=== PATIENT | female | born 1940 | race Caucasian/White ===

== ENCOUNTER → 2024-06-14 09:33 | Outpatient (REF) | payer OTHER, SELFPAY ==
[2024-06-14] MEDS: LEXISCAN 0.4 MG IV (11:50)
== END ==
LOC: RCS 09:33
PROVIDERS: ATTENDING PHYSICIAN Internal Medicine Cardiovascular Disease; FAMILY PHYSICIAN Family Medicine
DX: R06.09 Other forms of dyspnea (principal); I48.19 Other persistent atrial fibrillation
CPT/HCPCS: 78452; 93017; A9500; J2785

== ENCOUNTER 2024-07-12 06:15 | Day surgery (SDC) | payer OTHER, SELFPAY ==
[2024-07-12] VITALS (7 sets, daily range): BP systolic 124–157; BP diastolic 61–98; BMI 48.0
[2024-07-12 08:21] LABS: Glucose - Point of Care 106 mg/dl (70-99)
[2024-07-12] MEDS: NORMOSOL-R/PLASMALYTE-A 1000 IV (08:21)
[2024-07-12 10:05] LABS: Glucose - Point of Care 103 mg/dl (70-99)
[2024-07-12] MEDS: TYLENOL 650 MG PO (10:59)
== END 2024-07-12 12:05 | disposition home or self-care (01) ==
LOC: SDS 06:15
PROVIDERS: ATTENDING PHYSICIAN Obstetrics & Gynecology Gynecology
PROC: 0UDB8ZX Extraction of Endometrium, Via Natural or Artificial Opening Endoscopic, Diagnostic (ICD-10-PCS; 2024-07-12)
DX: N95.0 Postmenopausal bleeding (principal); N84.0 Polyp of corpus uteri; Z88.0 Allergy status to penicillin; Z88.2 Allergy status to sulfonamides; Z91.041 Radiographic dye allergy status
CPT/HCPCS: 58558; 88305; 82962; 88341; 88342

== ENCOUNTER 2025-03-03 10:20 | Emergency (ER) | payer OTHER, SELFPAY ==
[2025-03-03] VITALS (14 sets, daily range): BP systolic 113–181; BP diastolic 70–122; BMI 44.4
[2025-03-03 11:53] LABS: % Basophils 0.7 % (0-2); % Eosinophils 3.1 % (0-6); % Immature Granulocytes 0.3 % (0-0.5); % Monocytes 6.4 % (1.7-9.3); % Neutrophils 70.5 % (42.2-75.2); Absolute Basophils 0.1 10^3/uL (0-0.2); Absolute Eosinophils 0.2 10^3/uL (0-0.7); Absolute Lymphocytes 1.4 10^3/uL (1.2-3.4); Absolute Monocytes 0.5 10^3/uL (0.1-0.6); Absolute Neutrophils 5.3 10^3/uL (1.4-6.5); Hematocrit 39.7 % (37.0-47.0); Hemoglobin 13.4 g/dL (12.0-16.0); Mean Corp Hgb Conc. 33.8 g/dL (33.0-37.0); Mean Corpuscular Hgb 31.4 pg (27.0-31.0); Mean Platelet Volume 10.2 fL (7.4-10.4); Nucleated Red Blood Cells % 0 %; Platelet Count 207 10^3/uL (130-400); Red Blood Cell Count 4.27 10^6/uL (4.20-5.40); Red Cell Dist. Width 13.2 % (11.5-14.5); White Blood Cell Count 7.5 10^3/uL (4.8-10.8)
[2025-03-03 12:06] LABS: ALT (SGPT) 29 U/L (0-35); AST (SGOT) 25 U/L (14-36); Albumin 4.3 g/dl (3.5-5.0); Alkaline Phosphatase 144 U/L (38-126); Blood Urea Nitrogen 29 mg/dl (7-17); Calcium 9.7 mg/dl (8.4-10.2); Carbon Dioxide 28 mmol/L (22-30); Chloride 103 mmol/L (98-107); Estimated Creatinine Clearance 26 ml/min; Glucose 111 mg/dl (70-99); Total Bilirubin 0.7 mg/dl (0.2-1.3); Total Protein 7.4 g/dl (6.3-8.2); eGFR 25.72
[2025-03-03 12:50] LABS: Potassium 4.1 mmol/L (3.5-5.1); Sodium 143 mmol/L (135-145)
--- NOTE | 2025-03-03 13:59 | ED.GENMED ---
History of Present Illness
<Steven Rowan PA-C - Last Filed: 03/03/25 18:48>
General
Chief Complaint: Cardiac Symptoms
Time Seen by Provider: 03/03/25 11:50
History of Present Illness
History of Present Illness:
84-year-old female presents the emergency department for evaluation of heart palpitations that began this morning associated with mild chest tightness. She noted this morning that she was in A-fib however felt 'okay' however as the day went on her
rates increased and she began to feel more symptomatic. She denies any fevers, chills, or sweats. No leg swelling or vomiting. Has been compliant with all of her routine medications
Past History
<Steven Rowan PA-C - Last Filed: 03/03/25 18:48>
Past History
ED Past Medical History: HTN, Hypercholesterolemia, Hypothyroidism and Other (Kidney cancer, macular degeneration)
ED Past Surgical History: Urological and Other (Thyroidectomy)
Social History
Tobacco: Non-smoker
Alcohol: None
Drug: None
Personal:
Living: with family
Review of Systems
<Steven Rowan PA-C - Last Filed: 03/03/25 18:48>
Review of Systems
Allergies reviewed?: Yes
All Other Systems: ROS reviewed and negative except as documented in HPI and ROS
Phy Exam
<Steven Rowan PA-C - Last Filed: 03/03/25 18:48>
Physical Exam
Physical Exam:
GEN: Well appearing, NAD, WDWN
HEENT: Oral mucosa moist, no scleral icterus
Cardiac: Tachycardic and irregular, no murmur
Lung: No respiratory distress, no tachypnea, lungs clear to auscultation bilaterally
MSK: No gross deformity or injuries
Skin: Good color, no pallor or jaundice, no rashes
Neuro: AO x3, moves all extremities freely
Psych: Calm, cooperative
Course
<Steven Rowan PA-C - Last Filed: 03/03/25 18:48>
Orders/Labs/Results
Orders:
Orders
03/03/25 10:21
Electrocardiogram (*1) Urgent
Reason for Study: Atrial Fibrillation
EKG- Treatment ONCE
03/03/25 11:37
CMP [Comprehensive Metabolic Panel] Urgent
Complete Blood Count/With Diff Urgent
03/03/25 14:04
Propofol [Diprivan] 20 ml .ROUTE .STK-MED
03/03/25 14:13
Electrocardiogram (*1) Urgent
Reason for Study: Abnormal EKG
EKG- Treatment ONCE
Abnormal Lab Results
03/03/25
11:37
MCH 31.4 H pg
(27.0-31.0)
Lymphocytes % 19.0 L %
(20.5-51.1)
BUN 29 H mg/dl
(7-17)
Creatinine 1.9 H mg/dL
(0.6-1.0)
Glucose 111 H mg/dl
(70-99)
Alkaline Phosphatase 144 H U/L
(38-126)
03/03/25 11:37
03/03/25 11:37
Vital Signs
Initial and Last Documented VS:
Initial Vital Signs
Temp Pulse Resp BP Pulse Ox
98.2 F 129 16 181/118 98
03/03/25 10:28 03/03/25 10:28 03/03/25 10:28 03/03/25 10:28 03/03/25 10:28
Last Documented Vital Signs
Temp Pulse Resp BP Pulse Ox
98.3 F 68 18 141/74 97
03/03/25 15:20 03/03/25 15:20 03/03/25 15:20 03/03/25 15:20 03/03/25 15:20
<Jordan Holder, DO - Last Filed: 03/03/25 14:38>
Orders/Labs/Results
Orders:
Orders
03/03/25 10:21
Electrocardiogram (*1) Urgent
Reason for Study: Atrial Fibrillation
EKG- Treatment ONCE
03/03/25 11:37
CMP [Comprehensive Metabolic Panel] Urgent
Complete Blood Count/With Diff Urgent
03/03/25 14:04
Propofol [Diprivan] 20 ml .ROUTE .STK-MED
03/03/25 14:13
Electrocardiogram (*1) Urgent
Reason for Study: Abnormal EKG
EKG- Treatment ONCE
Abnormal Lab Results
03/03/25
11:37
MCH 31.4 H pg
(27.0-31.0)
Lymphocytes % 19.0 L %
(20.5-51.1)
BUN 29 H mg/dl
(7-17)
Creatinine 1.9 H mg/dL
(0.6-1.0)
Glucose 111 H mg/dl
(70-99)
Alkaline Phosphatase 144 H U/L
(38-126)
03/03/25 11:37
03/03/25 11:37
Vital Signs
Initial and Last Documented VS:
Initial Vital Signs
Temp Pulse Resp BP Pulse Ox
98.2 F 129 16 181/118 98
03/03/25 10:28 03/03/25 10:28 03/03/25 10:28 03/03/25 10:28 03/03/25 10:28
Last Documented Vital Signs
Temp Pulse Resp BP Pulse Ox
98.3 F 68 18 141/74 97
03/03/25 15:20 03/03/25 15:20 03/03/25 15:20 03/03/25 15:20 03/03/25 15:20
Procedures
<Steven Rowan PA-C - Last Filed: 03/03/25 18:48>
Moderate Sedation
Patient is able to open mouth: Yes
<Jordan Holder DO - Last Filed: 03/03/25 14:38>
Moderate Sedation
ASA Risk Score: Class II
Chart and allergies reviewed: Yes
Consent for anesthesia obtained: Yes
Time out completed (validating right patient & procedure): Yes
History of difficult intubation: No
Airway free of obstruction: Yes
Patient has a gag reflex: Yes
Patient has no dentures: Yes
Patient has no loose teeth: Yes
Medication administered by Provider during Moderate Sedation: IV Propofol (mg)
Total dose administered: 50
Time drug administered: 14:10
Moderate Sedation Procedure End Time: 14:20
Cardioversion
Indication:: Afib
Performed by:: Glory/Anum
Synchronized?: Yes
Energy Used: 150 joules
Number of attempts: 1
Successful?: Yes
ASA Risk Score: Class II
Any reaction or bad outcome to prior sedation/anesthesia?: No history of a reaction
Sedation level to be attained: moderate
Chart and allergies reviewed: Yes
Patient reassessed prior to sedation: Yes
Time out completed at (validating right patient & procedure): 14:09
History of difficult intubation: No
Airway free of obstruction: Yes
Patient has a gag reflex: Yes
Patient is able to open mouth: Yes
Patient has no dentures: Yes
Patient has no loose teeth: Yes
Medication administered by Provider during Moderate Sedation: IV Propofol (mg)
Total dose administered: 50
Time drug administered: 14:10
Start Time: 14:10
Stop Time: 14:20
<Steven Rowan PA-C - Last Filed: 03/03/25 18:48>
MDM/Problems Addressed
MDM/Problems Addressed:
After lab evaluation revealed no abnormalities we discussed the potential benefits with the patient regarding electrical cardioversion. She elected to proceed, cardioversion was uncomplicated with no need for BVM ventilation and no hypotension.
Tolerated well, single shock delivered to the 150 cc and she recovered well. Discharged in stable condition, recommend outpatient cardiology follow-up
<Steven Rowan PA-C - Last Filed: 03/03/25 18:48>
*Critical Care Note
Total Time (30-74mins, 75-104mins- exclusive of procedures): Not Applicable
ED Attending Note
<Steven Rowan PA-C - Last Filed: 03/03/25 18:48>
-
Portions of this chart may have been created with voice recognition software.� Occasional wrong word or��sound alike� substitutions may have occurred due to the inherent limitations of voice recognition software.
<Jordan Holder, DO - Last Filed: 03/03/25 14:38>
ED Attending Note
Patient seen and examined by attending physician: Yes
ED Attending Note:
I have reviewed and agree with history and treatment plan by Vernon Rowan. Cardioversion completed, patient tolerated well.
Discharge Plan
Departure
Patient Disposition: Home (Routine Discharge)
Date of Disposition: 03/03/25
Time of Disposition: 15:11
Patient with high blood pressure during this ER visit?: No
Discharge Problem:
Atrial fibrillation with RVR
Instructions: Atrial fibrillation, MODERATE SEDATION ADULT
Prescriptions:
No Action
atorvastatin 10 MG tablet
10 mg PO Q48H
levothyroxine 100 MCG tablet
100 mcg PO PURCELL
levothyroxine 50 MCG tablet
50 mcg PO MOTUWETHFRSA
guanfacine 1 MG tablet
1 mg PO BID
cholecalciferol (vitamin D3) 1,000 UNITS tablet
1,000 units PO DAILY
folic acid 0.4 MG tablet
0.4 mg PO DAILY
amlodipine 2.5 mg Tablet
2.5 mg PO HS
Eliquis 2.5 mg Tablet
2.5 mg PO BID
PreserVision AREDS-2 250-90-40-1 mg Capsule
1 tab PO BID
cyanocobalamin (vitamin B-12) [Vitamin B-12] 500 mcg Tablet
500 mcg PO DAILY
ascorbic acid (vitamin C) [Vitamin C] 500 mg Tablet
500 mg PO DAILY
spironolactone 25 mg Tablet
12.5 mg PO Q48H
pyridoxine (vitamin B6) 50 mg Capsule
100 mg PO DAILY
metoprolol succinate 50 mg tablet extended release 24 hr
75 mg PO BID
sodium bicarbonate 650 mg Tablet
650 mg PO BID
Referrals:
Kimberly Manzo MD [Family Provider] -
Activity Restrictions/Additional Instructions:
Call your tilesetter for follow-up
Interventions
Interventions:
*Risk Screen - Suicide Last Done: 03/03/25 10:28
*General Assessment Last Done: 03/03/25 11:31
*Neglect/Abuse Screening Last Done: 03/03/25 10:28
*ED- Fall Risk Assessment Last Done: 03/03/25 11:31
*ED COVID-19 Vaccine History Last Done: 03/03/25 11:31
*Nursing Disposition Last Done: 03/03/25 15:36
ED- Pulmonary Assessment Last Done: 03/03/25 11:31
ED- Cardiac Assessment Last Done: 03/03/25 11:31
Discharge Date and Time
Discharge Date/Time: 03/03/25 15:45
Print Language: Serbian
== END 2025-03-03 15:45 | disposition home or self-care (01) ==
LOC: EMR 10:20
PROVIDERS: EMERGENCY PHYSICIAN Emergency Medicine; FAMILY PHYSICIAN Family Medicine
DX: I48.91 Unspecified atrial fibrillation (principal); I10 Essential (primary) hypertension; E78.00 Pure hypercholesterolemia, unspecified; E03.9 Hypothyroidism, unspecified; Z85.528 Personal history of other malignant neoplasm of kidney
CPT/HCPCS: 92960; 99152; 99285; 80053; 85025; 93005

== ENCOUNTER 2025-05-30 11:12 | Emergency (ER) | payer OTHER, SELFPAY ==
[2025-05-30] VITALS (12 sets, daily range): BP systolic 99–157; BP diastolic 62–106
--- NOTE | 2025-05-30 11:45 | ED.GENMED ---
History of Present Illness
<Elan Figueredo PA-C - Last Filed: 05/30/25 14:36>
General
Chief Complaint: Heart Rate Problem
Source: patient
Time Seen by Provider: 05/30/25 11:22
History of Present Illness
History of Present Illness:
84-year-old female with past medical history of atrial fibrillation, CHF, hypertension, hyperlipidemia, mild renal insufficiency, previous renal cancer presenting to the emergency department after her watch told her she was in A-fib. Patient does
state she has noticed some mild elevated heart rate over the last 24 hours. She reports taking all of her medications as prescribed including her Eliquis. She denies any fevers or recent illnesses, current chest pain, shortness of breath or any
other concerns. Follows with certified nutritionist, Dr. Vergara. Notes that she was cardioverted in February and has been doing well otherwise. Patient does note she is also had an ablation which she believes was about 2 years ago.
Past History
<Elan Figueredo PA-C - Last Filed: 05/30/25 14:36>
Past History
ED Past Medical History: Cancer, HTN, Hypercholesterolemia, Renal failure, Hypothyroidism and Other (Kidney cancer, macular degeneration)
ED Past Surgical History: Urological and Other (Thyroidectomy)
Social History
Tobacco: Non-smoker
Alcohol: None
Drug: None
Personal:
Living: with family
Review of Systems
<Elan Figueredo PA-C - Last Filed: 05/30/25 14:36>
Review of Systems
All Other Systems: ROS reviewed and negative except as documented in HPI and ROS
Phy Exam
<Elan Figueredo PA-C - Last Filed: 05/30/25 14:36>
Physical Exam
Physical Exam:
GENERAL: Alert , in no apparent distress
EYE: Clear conjunctiva
NECK: Supple
ENT: o/p clr, mmm.
CARDIAC: Irregularly irregular, tachycardic
LUNGS: Clear breath sounds bilaterally, no acute respiratory distress,
NEUROLOGICAL: Alert and oriented
SKIN: Warm and dry, skin intact.
MUSCULOSKELETAL: No edema, well perfused.
PSYCH: Normal and appropriate interaction.
Scores
<Elan Figueredo PA-C - Last Filed: 05/30/25 14:36>
Heart Failure Risk
Heart Failure Risk Score: Not Applicable
Heart Score for Chest Pain Patients
STEMI patient?: Not applicable
Withdrawal Assessment of Alcohol
Withdrawal Assessment Completed?: Not applicable
Course
<Elan Figueredo PA-C - Last Filed: 05/30/25 14:36>
Orders/Labs/Results
Orders:
Orders
05/30/25 11:12
Electrocardiogram (*1) Urgent
Reason for Study: Atrial Fibrillation
EKG- Treatment ONCE
05/30/25 11:37
Propofol [Diprivan] 20 ml .ROUTE .STK-MED
05/30/25 11:39
Metoprolol [Lopressor] 5 mg IV NOW STA
05/30/25 11:52
Basic Metabolic Panel Urgent
Complete Blood Count/With Diff Urgent
05/30/25 13:45
EKG [Electrocardiogram (*1)] Urgent
Reason for Study: Atrial Fibrillation
EKG- Treatment ONCE
Abnormal Lab Results
05/30/25
11:52
Absolute Lymphs (auto) 1.1 L 10^3/uL
(1.2-3.4)
Lymphocytes % 17.7 L %
(20.5-51.1)
BUN 27 H mg/dl
(7-17)
Creatinine 1.7 H mg/dL
(0.6-1.0)
Glucose 104 H mg/dl
(70-99)
05/30/25 11:52
05/30/25 11:52
Vital Signs
Initial and Last Documented VS:
Initial Vital Signs
Temp Pulse Resp BP Pulse Ox
98.1 F 134 18 150/105 95
05/30/25 11:16 05/30/25 11:16 05/30/25 11:16 05/30/25 11:16 05/30/25 11:16
Last Documented Vital Signs
Temp Pulse Resp BP Pulse Ox
98.1 F 62 16 118/71 95
05/30/25 11:16 05/30/25 14:22 05/30/25 14:22 05/30/25 14:22 05/30/25 14:22
<Isaiah Conner, - Last Filed: 05/30/25 13:50>
Orders/Labs/Results
Orders:
Orders
05/30/25 11:12
Electrocardiogram (*1) Urgent
Reason for Study: Atrial Fibrillation
EKG- Treatment ONCE
05/30/25 11:37
Propofol [Diprivan] 20 ml .ROUTE .STK-MED
05/30/25 11:39
Metoprolol [Lopressor] 5 mg IV NOW STA
05/30/25 11:52
Basic Metabolic Panel Urgent
Complete Blood Count/With Diff Urgent
05/30/25 13:45
EKG [Electrocardiogram (*1)] Urgent
Reason for Study: Atrial Fibrillation
EKG- Treatment ONCE
Abnormal Lab Results
05/30/25
11:52
Absolute Lymphs (auto) 1.1 L 10^3/uL
(1.2-3.4)
Lymphocytes % 17.7 L %
(20.5-51.1)
BUN 27 H mg/dl
(7-17)
Creatinine 1.7 H mg/dL
(0.6-1.0)
Glucose 104 H mg/dl
(70-99)
05/30/25 11:52
05/30/25 11:52
Vital Signs
Initial and Last Documented VS:
Initial Vital Signs
Temp Pulse Resp BP Pulse Ox
98.1 F 134 18 150/105 95
05/30/25 11:16 05/30/25 11:16 05/30/25 11:16 05/30/25 11:16 05/30/25 11:16
Last Documented Vital Signs
Temp Pulse Resp BP Pulse Ox
98.1 F 62 16 118/71 95
05/30/25 11:16 05/30/25 14:22 05/30/25 14:22 05/30/25 14:22 05/30/25 14:22
Procedures
<Elan Figueredo PA-C - Last Filed: 05/30/25 14:36>
Cardioversion
Indication:: Afib
Performed by:: Anitra/Terell
Synchronized?: Yes
Energy Used: Other (100J)
Number of attempts: 1
Successful?: Yes
ASA Risk Score: Class II
Any reaction or bad outcome to prior sedation/anesthesia?: No history of a reaction
Sedation level to be attained: moderate
Chart and allergies reviewed: Yes
Patient reassessed prior to sedation: Yes
Time out completed at (validating right patient & procedure): 13:41
History of difficult intubation: No
Airway free of obstruction: No
Patient has a gag reflex: Yes
Patient is able to open mouth: Yes
Patient has no dentures: Yes
Patient has no loose teeth: Yes
Medication administered by Provider during Moderate Sedation: IV Propofol (mg)
Total dose administered: 50
Time drug administered: 13:42
Start Time: 13:42
Stop Time: 13:52
<Elan Figueredo PA-C - Last Filed: 05/30/25 14:36>
MDM/Problems Addressed
Differential Diagnosis Includes:
Paroxysmal A-fib
A flutter
Valvular dysfunction
Electrolyte abnormality
No symptoms to suggest infectious etiology
Thyroid dysfunction
MDM/Problems Addressed:
84-year-old female presenting to the ER for evaluation of what appears to be paroxysmal atrial fibrillation. Triage found patient to be in a 2-1 AV flutter, telemetry does show A-fib with variable rate between 110 and 140 bpm. Patient is properly
anticoagulated and reports taking her medicines as prescribed. Given she was cardioverted 3 months ago discussed risk versus benefit of cardioversion versus IV medication and following up with cardiology as an outpatient patient ultimately decided
to be cardioverted. In the meantime we will try and control rate with 5 mg IV Lopressor. Patient will still need follow-up with cardiology. Disposition pending
Chronic conditions affecting care: Arrhythmia
Acute Exacerbation and/or Progression of Chronic Illness: Arrhythmia
<Elan Figueredo PA-C - Last Filed: 05/30/25 14:36>
*Pulse Oximetry
SaO2: 96
Oxygen Mode of Delivery: Room air
Patient hypoxic: no
*Critical Care Note
Total Time (30-74mins, 75-104mins- exclusive of procedures): 30
comment:
Critical care statement: A total of 30 minutes of critical care time was provided for this patient. This includes management of unstable vital signs, evaluation of the patient at bedside, reviewing the patient's pertinent medical records, discussion
with consultants, review of old EKGs and review of pertinent medical records. This time with separate from time utilized to perform the aforementioned documented procedures
Data Reviewed
Review of Other/Old Records Reveals: Labs and Records
<ARIANNA Swan Last Filed: 05/30/25 14:36>
Comment
Comment:
See above for procedure note. Patient tolerated procedure well. Repeat EKG done following cardioversion shows patient in a rate controlled sinus rhythm with sinus arrhythmia at 63 bpm. No ischemic changes. Will continue to monitor patient
following sedation and anticipate discharge home following with outpatient cardiology follow-up.
Patient Management
Escalation/DeEscalation of care consider admission/obs:
Patient remains stable following cardioversion. Will follow up with cardiology. Aware of return precautions
ED Attending Note
<Elan Figueredo PA-C - Last Filed: 05/30/25 14:36>
-
Portions of this chart may have been created with voice recognition software.� Occasional wrong word or��sound alike� substitutions may have occurred due to the inherent limitations of voice recognition software.
<Isaiha Conner DO - Last Filed: 05/30/25 13:50>
ED Attending Note
Patient seen and examined by attending physician: Yes
I performed the substantive portion of visit, reviewed & personally made and approve the management plan that is documented in note by myself or JULIETH.: Yes
ED Attending Note:
84-year-old female presents with atrial fibrillation with RVR. Old record reviewed revealing previous cardioversion with success patient was cardioverted here in the emergency department with good success to normal sinus rhythm. Monitor and needs
outpatient follow-up with cardiology
Discharge Plan
Departure
Patient Disposition: Home (Routine Discharge)
Date of Disposition: 05/30/25
Time of Disposition: 14:31
Patient with high blood pressure during this ER visit?: Yes
Discharge Problem:
Atrial fibrillation
Instructions: Atrial Fibrillation (DC)
Prescriptions:
No Action
atorvastatin 10 MG tablet
10 mg PO Q48H
levothyroxine 100 MCG tablet
100 mcg PO PURCELL
levothyroxine 50 MCG tablet
50 mcg PO MOTUWETHFRSA
guanfacine 1 MG tablet
1 mg PO BID
cholecalciferol (vitamin D3) 1,000 UNITS tablet
1,000 units PO DAILY
folic acid 0.4 MG tablet
0.4 mg PO DAILY
amlodipine 2.5 mg Tablet
2.5 mg PO HS
Eliquis 2.5 mg Tablet
2.5 mg PO BID
PreserVision AREDS-2 250-90-40-1 mg Capsule
1 tab PO BID
cyanocobalamin (vitamin B-12) [Vitamin B-12] 500 mcg Tablet
500 mcg PO DAILY
ascorbic acid (vitamin C) [Vitamin C] 500 mg Tablet
500 mg PO DAILY
spironolactone 25 mg Tablet
12.5 mg PO Q48H
pyridoxine (vitamin B6) 50 mg Capsule
100 mg PO DAILY
metoprolol succinate 50 mg tablet extended release 24 hr
75 mg PO BID
sodium bicarbonate 650 mg Tablet
650 mg PO BID
Referrals:
Kimberly Manzo MD [Family Provider, Family Practice]
Interventions
Interventions:
*Risk Screen - Suicide Last Done: 05/30/25 11:16
*General Assessment Last Done: 05/30/25 11:16
*Neglect/Abuse Screening Last Done: 05/30/25 11:16
*ED COVID-19 Vaccine History Last Done: 05/30/25 11:22
ED- Cardiac Assessment Last Done: 05/30/25 11:50
ED- Pulmonary Assessment Last Done: 05/30/25 11:50
Discharge Date and Time
Print Language: [place]al[place]
[2025-05-30] MEDS: LOPRESSOR 5 MG IV (11:53)
[2025-05-30 12:03] LABS: Hematocrit 39.4 % (37.0-47.0); Hemoglobin 13.1 g/dL (12.0-16.0); Mean Corp Hgb Conc. 33.2 g/dL (33.0-37.0); Mean Corpuscular Volume 91.6 fL (81.0-99.0); Nucleated Red Blood Cells % 0 %; Platelet Count 215 10^3/uL (130-400); Red Cell Dist. Width 13.1 % (11.5-14.5)
[2025-05-30 12:30] LABS: Blood Urea Nitrogen 27 mg/dl (7-17); Calcium 9.3 mg/dl (8.4-10.2); Carbon Dioxide 26 mmol/L (22-30); Chloride 107 mmol/L (98-107); Glucose 104 mg/dl (70-99); Potassium 3.8 mmol/L (3.5-5.1); Sodium 142 mmol/L (135-145); eGFR 29.39
== END 2025-05-30 14:45 | disposition home or self-care (01) ==
LOC: EMR 11:12
PROVIDERS: Physician Assistant Medical; EMERGENCY PHYSICIAN Emergency Medicine; FAMILY PHYSICIAN Family Medicine
DX: I48.91 Unspecified atrial fibrillation (principal); I48.92 Unspecified atrial flutter; I11.0 Hypertensive heart disease with heart failure; I50.9 Heart failure, unspecified; E03.9 Hypothyroidism, unspecified; E78.00 Pure hypercholesterolemia, unspecified; I13.0 Hypertensive heart and chronic kidney disease with heart failure and stage 1 through stage 4 chronic kidney disease, or unspecified chronic kidney disease; N18.9 Chronic kidney disease, unspecified; H35.30 Unspecified macular degeneration; Z85.528 Personal history of other malignant neoplasm of kidney; Z79.01 Long term (current) use of anticoagulants; Z91.041 Radiographic dye allergy status; Z88.0 Allergy status to penicillin; Z88.2 Allergy status to sulfonamides; Z91.048 Other nonmedicinal substance allergy status
CPT/HCPCS: 99291; 92960; 96374; 99152; 80048; 85025; 93005

== ENCOUNTER 2025-06-09 15:42 | Inpatient (IN) | payer OTHER, SELFPAY ==
[2025-06-09] VITALS (12 sets, daily range): BP systolic 127–156; BP diastolic 10–110; BMI 44.8
[2025-06-09 13:13] LABS: Hematocrit 39.4 % (37.0-47.0); Hemoglobin 13.4 g/dL (12.0-16.0); Mean Corp Hgb Conc. 34.0 g/dL (33.0-37.0); Mean Corpuscular Volume 91.2 fL (81.0-99.0); Nucleated Red Blood Cells % 0 %; Platelet Count 210 10^3/uL (130-400); Red Cell Dist. Width 13.1 % (11.5-14.5)
[2025-06-09 13:31] LABS: APTT 30.6 Sec (23.4-35.0)
--- NOTE | 2025-06-09 13:34 | ED.GENMED ---
History of Present Illness
General
Chief Complaint: Heart Rate Problem
Source: patient
Time Seen by Provider: 06/09/25 13:24
History of Present Illness
History of Present Illness:
The patient is an 84-year-old female who presents with complaints of a rapid heartbeat. She was previously treated with cardioversion and has a history of atrial fibrillation. The patient indicates she was recently cardioversion and is under the
care of a curing bin operator, Dr. Vergara. Medications have not been changed recently. She takes Metoprolol 75 mg twice daily, Amlodipine 5 mg once daily, Sodium Bicarbonate 650 mg, Alprazolam 2.5 mg twice daily, Atorvastatin 10 mg once daily, and
Torsemide 10 mg. She withheld the Torsemide due to an upcoming computed tomography scan of the chest, abdomen, and pelvis related to kidney cancer surveillance from her history of kidney cancer in 2016 and 2017. The patient has undergone a prior
ablation procedure in September 2023 and was on Amiodarone until December of the following year, which she discontinued after maintaining sinus rhythm post-ablation. Her first recurrence of atrial fibrillation was in February of the current year, for
which she underwent a cardioversion. She was again cardioverted 10 days ago May. Presently, she reports no palpitations, shortness of breath, chest pain, or dizziness despite her elevated heart rate, which was discovered upon checking her blood
pressure while preparing for her appointment. Her resting pulse rate was recorded at 126 beats per minute.
Past History
Past History
ED Past Medical History: Cancer, HTN, Hypercholesterolemia, Renal failure, Hypothyroidism and Other (Kidney cancer, macular degeneration)
ED Past Surgical History: Urological and Other (Thyroidectomy)
Social History
Tobacco: Non-smoker
Alcohol: None
Drug: None
Personal:
Living: with family
Phy Exam
Physical Exam
Physical Exam:
General: Awake, Alert, Oriented X3. No acute distress. Appears stated age
Vitals: Tachycardic
Head: Atraumatic
Eyes: Pupils equal, EOMI
Throat: Airway intact, no exudates
Neck: Trachea midline
Lungs: Clear and equal b/l
Heart: Tachycardic, regular rate, no murmurs
Abd: Soft, Nontender, No pulsatile mass
Neuro: Nonfocal
Skin: Warm, dry, no rash
Extremities: pulses equal b/l, no edema
Course
Orders/Labs/Results
Orders:
Orders
06/09/25 Breakfast
Cholesterol Lowering
At Your Request: Full Participation
Cholesterol Lowering: Sodium, 2 Gram
06/09/25 12:06
ECG [Electrocardiogram (*1)] Urgent
Reason for Study: Atrial Fibrillation
06/09/25 13:03
Complete Blood Count/With Diff Urgent
Comprehensive Metabolic Panel Urgent
PTT Urgent
06/09/25 13:36
Diltiazem 125 mg/125 ml Nss [Cardizem] 125 mg in 125 ml IV NOW
Initial dose in mg/hr, then titrate:: 5
Titrate to keep:: Heart rate 80-100 bpm
Titrate by mg/hr:: 5 mg/hr
Frequency of titrations (minutes):: 15
Maximum dose in mg/hr:: 15
Diltiazem HCl [Cardizem] 15 mg IV NOW STA
06/09/25 15:[address] Non Medication Order As Directed
Physician Order: complete med rec. thanks
Above order entered?: Yes
06/09/25 15:28
Admit/Transfer Patient As Directed
Co-Sign Provider:
Level of Care: Inpatient admission
Assign to:: IVU
Physician / Group: annmarie roa
Diagnosis: atrial fib with RVr
Reason for Hospitalization: atrial fib with RVR
Expected length of stay greater than two midnights?: Yes
ELOS- Estimated Length of Stay in days: 3
I certify the patient meets the requirements for IP care: Yes
PRN Pain Medication Management As Directed
May give lesser potent ordered pain med per pt: Yes
preference::
Protocol:: Medication orders for pain may be administered in a
manner that supports deferring to patient preference
when the pt is:
- Requesting an ordered lesser potent pain medication.
Least to most potent pain medications are defined
as: acetaminophen < NSAID < tramadol < opioids
(morphine, oxycodone, hydromorphone).
- Requesting a lesser dose of the same medication IF
ORDERED.
- Requesting a less intrusive route of administration
if both routes are prescribed by the provider (PO <
IV).
06/09/25 15:29
Code Status As Directed
Resuscitation Status: Full Code
06/09/25 15:32
Weight As Directed
Frequency: Once
Comment: Please obtain weight in ER. Thank you.
06/09/25 18:47
Acetaminophen [Tylenol] 650 mg PO Q4HPRN PRN
Bisacodyl [Dulcolax] 10 mg RECTAL [id number] PRN
Docusate W/Senna [Senokot-S] 1 tablet PO BIDPRN PRN
Polyethylene Glycol Powder [Miralax] 17 grams PO DAILYPRN PRN
06/09/25 18:47
CARDIOLOGY CONSULT Routine
Consulting Provider: Joao Davis
Was physician already notified: Yes
Activity As Directed
Activity Level: As Tolerated
Intake/ Output As Directed
Frequency: Per unit guidelines
Pneumatic Compression Sleeves As Directed
Type: Knee high
Vital Signs As Directed
Frequency: Per unit guidelines
Weight As Directed
Frequency: Daily
DX Deep Vein Thrombosis Video Routine
06/10/25 06:00
Basic Metabolic Panel IN AM
Cardiovascular Evaluation IN AM
06/11/25 06:00
Basic Metabolic Panel IN AM
06/12/25 06:00
Basic Metabolic Panel IN AM
06/13/25 06:00
Basic Metabolic Panel IN AM
Abnormal Lab Results
06/09/25
13:03
Lymphocytes % 19.1 L %
(20.5-51.1)
BUN 31 H mg/dl
(7-17)
Creatinine 1.8 H mg/dL
(0.6-1.0)
Glucose 103 H mg/dl
(70-99)
06/09/25 13:03
06/09/25 13:03
Vital Signs
Initial and Last Documented VS:
Initial Vital Signs
Temp Pulse Resp BP Pulse Ox
98.0 F 128 20 145/10 95
06/09/25 12:25 06/09/25 12:25 06/09/25 12:25 06/09/25 12:25 06/09/25 12:25
Last Documented Vital Signs
Temp Pulse Resp BP Pulse Ox
98.5 F 129 18 141/96 98
06/09/25 18:48 06/09/25 18:48 06/09/25 18:48 06/09/25 17:00 06/09/25 18:48
MDM/Problems Addressed
Differential Diagnosis Includes:
Atrial fibrillation, atrial flutter, SVT, sinus tachycardia
MDM/Problems Addressed:
Patient presents with a flutter with a rapid ventricular response. Patient's rate controlled with Cardizem. Discussed options with the patient. I do not believe it would make sense to cardiovert her again as she was just converted 10 days ago.
Discussed with cardiology, Dr. Jacoby morris. She agrees. Will hospitalize the patient for Tikosyn loading and cardioversion as an inpatient.
*Pulse Oximetry
SaO2: 95
Oxygen Mode of Delivery: Room air
Patient hypoxic: no
*EKG
Interpreted by ED Provider?: Yes
Interpretation: abnormal
Heart Rate: 122
Rate: tachycardiac
Rhythm: atrial flutter
Ravalli: normal axis
Interval: normal interval
QRS Pattern: normal QRS
Ischemia: non-specific ST changes
*Medical Billing Supervisor Interpretation
Rate: tachycardiac
Interpretation: abnormal
Heart Rate: 122
Rhythm: atrial flutter
*Critical Care Note
Total Time (30-74mins, 75-104mins- exclusive of procedures): Not Applicable
ED Attending Note
-
Portions of this chart may have been created with voice recognition software.� Occasional wrong word or��sound alike� substitutions may have occurred due to the inherent limitations of voice recognition software.
Discharge Plan
Departure
Patient Disposition: Admit
Date of Disposition: 06/09/25
Time of Disposition: 15:10
Admit to: IMU
Presentation/result/management discussed w/ accepting MD/DO: Hospitalist
Condition: Fair
Discharge Problem:
Atrial fibrillation with RVR
Interventions
Interventions:
*Risk Screen - Suicide Last Done: 06/09/25 12:25
*General Assessment Last Done: 06/09/25 12:25
*Neglect/Abuse Screening Last Done: 06/09/25 18:45
*ED- Fall Risk Assessment Last Done: 06/09/25 18:45
*ED COVID-19 Vaccine History Last Done: 06/09/25 14:26
*Nursing Disposition Last Done: 06/09/25 18:45
ED- Cardiac Assessment Last Done: 06/09/25 12:54
ED- Pulmonary Assessment Last Done: 06/09/25 12:54
Discharge Date and Time
Discharge Date/Time: 06/09/25 18:47
[2025-06-09 13:35] LABS: ALT (SGPT) 18 U/L (0-35); AST (SGOT) 20 U/L (14-36); Albumin 4.0 g/dl (3.5-5.0); Alkaline Phosphatase 120 U/L (38-126); Blood Urea Nitrogen 31 mg/dl (7-17); Calcium 9.7 mg/dl (8.4-10.2); Carbon Dioxide 27 mmol/L (22-30); Chloride 104 mmol/L (98-107); Glucose 103 mg/dl (70-99); Potassium 4.0 mmol/L (3.5-5.1); Sodium 139 mmol/L (135-145); Total Protein 7.1 g/dl (6.3-8.2); eGFR 27.44
[2025-06-09] MEDS: CARDIZEM 125 IV (13:43)
[2025-06-09] MEDS: CARDIZEM 15 MG IV (13:44)
--- NOTE | 2025-06-09 15:11 | HPS.HSE ---
Family Physician
<BREN Zamora - Last Filed: 06/09/25 16:51>
-
Family Physician: Kimberly Manzo
Chief Complaint
<BREN Zamora - Last Filed: 06/09/25 16:51>
-
elevated HR
History of Present Illness
84-year-old female with past medical history for hypertension, A-fib, CKD, renal cell carcinoma, A-fib with multiple cardioversion, cardiac ablation presented to us with complaints of a rapid heartbeat. She was checking her blood pressure prior to
the CAT scan and noted elevator heart rate in 120s .patient denied any palpitation, short of breath, chest pain .patient denied any headache, dizzy or syncope. Patient denied fever, chills.patient denied any abdominal pain, nausea, vomiting or
diarrhea. Patient denied dysuria hematuria.
Upon arrival she was noted in A-fib with RVR. Patient started on Cardizem drip. Admitted for further management
Medical History
<BREN Zamora - Last Filed: 06/09/25 16:51>
Past Medical History
Past Medical History: Reports Other
Additional Past Medical History:
Hypertension
A-fib
Nocturnal hypoxemia
Stage IV CKD
Obstructive sleep apnea
Renal cell carcinoma
Coronary artery disease
Macular degeneration
Chest pain syndrome
Osteoarthritis
Past Surgical History: Reports Other
Additional Past Surgical History:
History of partial nephrectomy
Right-sided partial thyroidectomy
Bilateral cataract surgery
Hernia repair
Cardioversion
Hysterectomy D&C polypectomy
Cardiac ablation
Social History
Tobacco: Non-smoker
Alcohol: None
Drug: None
Personal:
Living: With Family
Family History
Family History: Not pertinent
Allergies / Home Medications
Allergies reflects when Allergies were last updated in [employer].
Home Medications with original date entered in [employer]
Allergy/Medication List:
Allergies
Allergy/AdvReac Type Severity Reaction Status Date / Time
adhesive tape Allergy red Verified 06/09/25 12:28
Gadolinium-Containing Allergy pt unsure Verified 06/09/25 12:28
Contrast Medi about this
one
Iodinated Contrast Media Allergy Hives Verified 06/09/25 12:28
Penicillins Allergy Hives Verified 06/09/25 12:28
Sulfa (Sulfonamide Allergy redness Verified 06/09/25 12:28
Antibiotics)
Home Medications
atorvastatin 10 mg tablet 10 mg PO Q48H High cholesterol 03/17/22
cholecalciferol (vitamin D3) 25 mcg (1,000 unit) tablet 1,000 units PO DAILY Supplement 03/17/22
folic acid 400 mcg tablet 0.4 mg PO DAILY Supplement 03/17/22
guanfacine 1 mg tablet 1 mg PO BID Blood pressure 03/17/22
levothyroxine 100 mcg tablet 100 mcg PO PURCELL Thyroid 03/17/22
levothyroxine 50 mcg tablet 50 mcg PO MOTUWETHFRSA Thyroid 03/17/22
amlodipine 2.5 mg tablet 2.5 mg PO HS Blood Pressure 09/29/23
apixaban 2.5 mg tablet (Eliquis) 2.5 mg PO BID Blood Clot Prevention/Tx 09/29/23
ascorbic acid (vitamin C) 500 mg tablet (Vitamin C) 500 mg PO DAILY Supplement 09/29/23
cyanocobalamin (vitamin B-12) 500 mcg tablet (Vitamin B-12) 500 mcg PO DAILY Supplement 09/29/23
vit C 250 mg-vit E 90 mg-zinc 40 mg-copper 1 [id number] capsule (PreserVision AREDS-2) 1 tab PO BID Supplement 09/29/23
metoprolol succinate 50 mg tablet,extended release 24 hr 75 mg PO BID 10/19/23
pyridoxine (vitamin B6) 50 mg capsule 100 mg PO DAILY 10/19/23
spironolactone 25 mg tablet 12.5 mg PO Q48H 10/19/23
sodium bicarbonate 650 mg tablet 650 mg PO BID 07/09/24
Review of Systems
<BREN Zamora - Last Filed: 06/09/25 16:51>
-
Constitutional: Reports No Symptoms
EENT: Reports No Symptoms
Respiratory: Reports No Symptoms
Cardiac: Reports No Symptoms
Abdomen/GI: Reports No Symptoms
: Reports No Symptoms
Musculoskeletal: Reports No Symptoms
Skin: Reports No Symptoms
Neurological: Reports No Symptoms
Endocrine: Reports No Symptoms
Hematologic/Lymphatic: Reports No Symptoms
Psych: Reports No Symptoms
Physical Exam
<BREN Zamora - Last Filed: 06/09/25 16:51>
Vital Signs
Vital Signs
Temp Pulse Resp BP Pulse Ox
98.0 F 115 17 150/103 95
06/09/25 12:25 06/09/25 14:45 06/09/25 14:45 06/09/25 14:42 06/09/25 13:36
Physical Exam
General: Well Developed, Well Nourished and No Apparent Distress
HEENT: NormoCephalic, Moist mucous membranes and Atraumatic
Respiratory: Clear
Cardiac: Irregular Rhythm and Tachycardia; No Murmur or Rub
GI: Soft, Non Tender, Non Distended and Normal Bowel Sounds; No Organomegaly
Rectal: Deferred by Provider
Musculoskeletal: No Clubbing, No Cyanosis and No Edema
Skin: No Rash
Neuro: AO x 3 and Nonfocal/grossly intact
Psych: Calm
Laboratory Results
<BREN Zamora - Last Filed: 06/09/25 16:51>
-
06/09/25 13:03
06/09/25 13:03
Laboratory Results
APTT 30.6 Sec (23.4-35.0) 06/09/25 13:03
Total Bilirubin 0.7 mg/dl (0.2-1.3) 06/09/25 13:03
AST 20 U/L (14-36) 06/09/25 13:03
ALT 18 U/L (0-35) 06/09/25 13:03
Alkaline Phosphatase 120 U/L (38-126) 06/09/25 13:03
Data Reviewed
<BREN Zamora - Last Filed: 06/09/25 16:51>
-
Lab Data: Labs Reviewed by me
Impression/Plan
<BREN Zamora - Last Filed: 06/09/25 16:51>
-
# A-fib with RVR
- Multiple cardioversion in the past
- Cardiology consulted
- EKG with a flutter with 2: 1 AV conduction
- Cardizem drip continued
- Eliquis continued, metoprolol continue
# Hypothyroidism
- Levothyroxine continued
# CKD stage IV
- Creatinine 1.8
- Continue to monitor
# Essential hypertension
- Norvasc continued
# Hyperlipidemia
- Statin continued
# History of CHF
- Not in acute exacerbation
- Farxiga, torsemide continued
- Strict [place], daily weight
# DVT prophylaxis
- Eliquis
# CODE STATUS
-Full code
<Guille Hartman MD - Last Filed: 06/09/25 15:49>
-
# A-fib with RVR
- Multiple cardioversion in the past
- Cardiology consulted
- EKG with a flutter with 2: 1 AV conduction
- Cardizem drip continued
# CKD stage IV
- Creatinine 1.8
- Continue to monitor
# DVT prophylaxis
# CODE STATUS
-Full code
--- NOTE | 2025-06-09 15:17 | CON.CAR ---
Addendum entered and electronically signed by Joao Davis MD 06/09/25 17:56:
I saw and examined the patient.
The DISTRICT PLANT SUPERVISOR's note was reviewed and I agree with the note.
Comment:
84-year-old female with hypertension, persistent atrial fibrillation status post ablation in 2022, multiple recent cardioversions (February, May), HFpEF who presents with recurrence of atrial fibrillation. She is asymptomatic but went to check her
blood pressure recently and noted that her heart rate was in the 120s. She presented to the ER. She has since been started on a diltiazem drip and her rates are better controlled. She remains asymptomatic.
Physical exam notable for irregular rhythm and regular rate, no murmurs, chronic lower extremity edema, and clear lungs
Labs with creatinine 1.8 (baseline)
ECG 06/09/2025: Atrial flutter with 2:1 AV conduction, HR 122 bpm
I had a long discussion with her about options for A-fib management. We ultimately elected a rate control strategy. She is asymptomatic in afib, so I think this makes sense. She is already on metoprolol 75 mg twice daily. We will add p.o.
diltiazem and wean down her diltiazem drip with goal HR <110 bpm. My 1 concern is that when she is in sinus her heart rate is in the 60s. If she becomes bradycardic with adding diltiazem, we will need to reconsider. Options for rhythm control
would be Tikosyn 125 mcg twice daily given her renal function or amiodarone (to which she has had GI side effects in the past).
Original Note:
Consultation
Consultation Request
Date/Time Consultation Requested: 06/09/25 1349
Date/Time Consultation Performed: 06/09/25 1540
Requesting Provider: Dr. Martinez
Performing Provider: Inocencia CORREIA for Dr. Davis
Reason for Consultation: Recurrent AFIB
Medical History
-
Chief Complaint: recurrent AFIB
History of Present Illness:
84 y/o female (patient of Dr. Vergara) with hypertension, persistent AFIB s/p ablation 09/29/2023 with recurrence of AFIB, and then CV 03/03/25 and 05/29/25, HFpEF, hypertension, CKDIV (hx right partial and left total nephrectomy (Dr. Carreno) who
is here for AFIB recurrence. She saw this on her smart watch when she checked prior to an OP CT scan and was quite surprised to see that HR was fast, since she does not feel it. Rates fast on arrival, so placed on diltiazem drip. HR controlled with
this. She is in no distress at the time of my assessment.
Past Medical History
Past Medical History: Arrhythmias (AFIB), CHF, HTN and Renal Failure (as noted)
Social History
Tobacco: Non-Smoker
Family History
Family History: Reviewed & Not Pertinent
Allergies / Home Medications
Allergy/AdvReac Type Severity Reaction Status Date / Time
adhesive tape Allergy red Verified 06/09/25 12:28
Gadolinium-Containing Allergy pt unsure Verified 06/09/25 12:28
Contrast Medi about this
one
Iodinated Contrast Media Allergy Hives Verified 06/09/25 12:28
Penicillins Allergy Hives Verified 06/09/25 12:28
Sulfa (Sulfonamide Allergy redness Verified 06/09/25 12:28
Antibiotics)
Meds not yet updated.
�Medication �Instructions �Recorded �Confirmed �Type
atorvastatin 10 mg tablet 10 mg PO Q48H High cholesterol 03/17/22 07/12/24 History
cholecalciferol (vitamin D3) 25 1,000 units PO DAILY Supplement 03/17/22 07/09/24 History
mcg (1,000 unit) tablet
folic acid 400 mcg tablet 0.4 mg PO DAILY Supplement 03/17/22 07/12/24 History
guanfacine 1 mg tablet 1 mg PO BID Blood pressure 03/17/22 07/12/24 History
levothyroxine 100 mcg tablet 100 mcg PO PURCELL Thyroid 03/17/22 07/12/24 History
levothyroxine 50 mcg tablet 50 mcg PO MOTUWETHFRSA Thyroid 03/17/22 07/12/24 History
amlodipine 5 mg po daily 09/29/23 07/12/24 History
apixaban 2.5 mg tablet (Eliquis) 2.5 mg PO BID Blood Clot 09/29/23 07/12/24 History
Prevention/Tx
ascorbic acid (vitamin C) 500 mg 500 mg PO DAILY Supplement 09/29/23 07/09/24 History
tablet (Vitamin C)
cyanocobalamin (vitamin B-12) 500 500 mcg PO DAILY Supplement 09/29/23 07/09/24 History
mcg tablet (Vitamin B-12)
vit C 250 mg-vit E 90 mg-zinc 40 1 tab PO BID Supplement 09/29/23 07/12/24 History
mg-copper 1 [id number]
capsule (PreserVision AREDS-2)
metoprolol succinate 50 mg 75 mg PO BID 10/19/23 07/12/24 History
tablet,extended release 24 hr
pyridoxine (vitamin B6) 50 mg 100 mg PO DAILY 10/19/23 07/09/24 History
capsule
torsemide 10 mg daily
sodium bicarbonate 650 mg tablet 650 mg PO BID 07/09/24 07/12/24 History
Review of Systems
-
History Source: Patient
All other systems: Negative unless noted (no symptoms)
Physical Exam
Vital Signs
Temp Pulse Resp BP Pulse Ox
98.0 F 115 17 150/103 95
06/09/25 12:25 06/09/25 14:45 06/09/25 14:45 06/09/25 14:42 06/09/25 13:36
Lab Results
06/09/25 13:03
06/09/25 13:03
Physical Exam
General: Well Developed, Well Nourished and No Apparent Distress
HEENT: Normocephalic and Anicteric
Respiratory: Clear and Non Labored Respirations
Cardiac: Irregular Rhythm and Peripheral Edema (chronic, stable)
Skin: Warm and Dry
Neuro: AO x 3
Psych: Calm
Impression / Plan
-
AFIB, recurrent, persistent:
-I have discussed rhythm versus rate-control. Rhythm control would be with dofetilide and would have to be low dose based on renal function. Of note, she thinks on amiodarone she felt unwell. However, she does not feel the afib, so I think rate
control would be reasonable and I would transition from amlodipine to diltiazem PO, as higher doses of metoprolol gave her side effects per OP chart.
-continue Eliquis for OAC- she reports compliance
-stop IV diltiazem and transition to PO, continue PO metoprolol
HTN:
-continue BB and CCB as above and monitor
HFpEF: chronic
-does not appear overloaded
-would continue usual diuretic regimen
CKD IV:
-follow creatinine
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
-hx nephrectomy (right partial and left total)
Data Reviewed
-
EKG: Tracing Personally Visualized and interpreted (Atrial flutter 122 BPM)
Radiology: Report Reviewed by me
Medical Tests (Nuc Med, Echo etc): Report Reviewed by me (Echo 10/04/23: LV ejection fraction is 55-60%. No regional wall motion abnormalities are seen. Normal right ventricular size. Grossly normal right ventricular systolic function. Mild
aortic stenosis; peak/mean gradients 9/5 mmHg.)
Labs: Labs Reviewed by me
--- NOTE | 2025-06-09 15:49 | W.PN.UPDATE ---
Update Note
Progress Note Update
his note serves as an addendum to the H&P by director of broadcast JULIETH Johanna Rosales
HPI
84F HX AF on Eliquis, s/p ablation , HTN CKD status post left nephrectomy and partial right nephrectomy follows with Dr. Edge, GERD, hypothyroidism and chronic lymphedema seen at ER
- elevated heart rate, which was discovered upon checking her blood pressure
- previously treated with cardioversion iner Dr. Vergara.
- Medications have not been changed recentl
- recently withheld the Torsemide due to an upcoming CTC and AP RCC surveillanc with HX RCC 2016 and 2017. - HX multple CV in the past
- Last CV was 10 days ago this month =
ROS:
no palpitations, shortness of breath, chest pain, or dizziness despite
Vital Signs
Temp Pulse Resp BP Pulse Ox
98.0 F 115 17 150/103 95
06/09/25 12:25 06/09/25 14:45 06/09/25 14:45 06/09/25 14:42 06/09/25 13:36
PE
Gen: NAD
HEENT:
Neck:
Lungs: CTA
Cor: tachycardic
Abdomen: soft benign
PROCESS CONTROL BOARD OPERATOR: NFND
MS: no edema
Abnormal Lab Results
06/09/25
13:03
Lymphocytes % 19.1 L
BUN 31 H
Creatinine 1.8 H
Glucose 103 H
Last hospitalist admission: 10/01/2023
DISCHARGE DIAGNOSES:
1. Presentation with subjective fever and negative infectious disease workup.
2. Acute hypoxic respiratory insufficiency secondary to acute congestive heart failure exacerbation and pulmonary edema.
3. Acute diastolic congestive heart failure exacerbation.
4. Status post atrial fibrillation ablation, October 12.
CONDITIONS PRIOR TO ADMISSION:
1. Chronic diastolic congestive heart failure.
2. Chronic kidney disease. Stage 3A to B with baseline creatinine around 1.5-1.7.
3. Status post total left nephrectomy as well as partial right nephrectomy for renal cell carcinoma.
4. Essential hypertension.
5. Obesity due to excessive calories with BMI of 50.
6. Status post partial thyroidectomy on thyroid supplementation.
7. Dyslipidemia.
ASSESSMENT & PLAN
Pending Rx reconciliation
Recurrent fast paroxysmal AF with RVR 120s
Last CV this month 10 days ago
HX multiple CV
- Atrial fibrillation status post ablation 09/29/23.
- on Diltiazem gtt
- on metoprolol
- on MARKET RESEARCH CONSULTANT Eliquis
- CBC Card consulted
HX chr HFpEF suspect voll expanded due to holding Torsemide due to an upcoming CTC/A?P for RCC surveillance
- Fluid restriction and follow daily weight. weight currently trending down.
- Cariology consult pending.
CKD4 HX
- Creatinine 1.8 - at base line
- f/u Cr
Hypothyroidism:
- Follow TSH levels.
- c/w Synthroid.
DVT Px: Eliquis
Full code
IVU
[2025-06-09] MEDS: CARDIZEM CD 120 MG PO (17:23)
[2025-06-09] MEDS: SODIUM BICARBONATE 650 MG PO (19:49)
[2025-06-09] MEDS: LIPITOR 10 MG PO (19:49)
[2025-06-09] MEDS: TOPROL XL 75 MG PO (19:49)
[2025-06-09] MEDS: OCUVITE SOFTGEL 1 CAP PO (19:49)
[2025-06-09] MEDS: ELIQUIS 2.5 MG PO (19:49)
[2025-06-09] MEDS: TYLENOL 650 MG PO (23:57)
[2025-06-10 04:23] VITALS: BP 136/69; BMI 44.5
[2025-06-10] MEDS: SYNTHROID 50 MCG PO (04:35)
--- NOTE | 2025-06-10 05:03 | PTCARENOTE ---
Rec'd pt at change of shift. Pt AAO*3, VSS, and afib on tele monitor with HR in the 80-90's at rest. Pt reports pain bilaterally in feet with ambulation, PRN Tylenol given as ordered. Admission complete and pt oriented to unit. Pt updated on
plan of care and kept NPO after midnight for possible testing or procedure. Pt resting with call pelaez in reach, see MAR and flowchart for full pt care and assessment.
Pt converted to SR at 2100, rhythm changed confirmed by EKG. Pt still calling for staff assistance to ambulate and NPO.
--- NOTE | 2025-06-10 05:04 | DOWNTIME ---
There was a [email or web address] Diesel Locomotive Engineer Downtime on 06/10/2025 from 0100 to 06/10/2025 at 0220. Downtime documentation of patient's care, including medication administrations, has been reconciled in the electronic record per guidelines. Refer to the
patient's paper chart under the miscellaneous tab to see printed paper medication records and downtime forms.
[2025-06-10 05:17] LABS: Blood Urea Nitrogen 28 mg/dl (7-17); Calcium 9.1 mg/dl (8.4-10.2); Carbon Dioxide 28 mmol/L (22-30); Chloride 108 mmol/L (98-107); Estimated Creatinine Clearance 28 ml/min; Glucose 93 mg/dl (70-99); HDL Cholesterol 34 mg/dl; LDL Cholesterol, Calculated 55 mg/dl; Potassium 4.0 mmol/L (3.5-5.1); Sodium 142 mmol/L (135-145); Very Low Density Lipoprotein 24 mg/dl (0-30); eGFR 27.44
[2025-06-10 07:17] VITALS: BP 143/67
[2025-06-10] MEDS: FARXIGA 10 MG PO (08:00)
[2025-06-10] MEDS: DEMADEX 10 MG PO (08:00)
[2025-06-10] MEDS: TOPROL XL 75 MG PO (08:00)
[2025-06-10] MEDS: CARDIZEM CD 120 MG PO (08:00)
[2025-06-10] MEDS: ELIQUIS 2.5 MG PO (08:00)
[2025-06-10] MEDS: OCUVITE SOFTGEL 1 CAP PO (08:00)
[2025-06-10] MEDS: SODIUM BICARBONATE 650 MG PO (08:01)
[2025-06-10] MEDS: FLUSH (NSS) 1 FLUSH IV (08:03)
--- NOTE | 2025-06-10 09:04 | W.PN.HOSP.TC ---
Today's Communication/Plan
-
d/w cardiology, possible dc later today
Assessment / Plan
Assessment / Plan
Physical Exam
General: Well Developed, Well Nourished and No Apparent Distress
HEENT: NormoCephalic, Moist mucous membranes and Atraumatic
Respiratory: Clear
Cardiac: Irregular Rhythm and Tachycardia; No Murmur or Rub
GI: Soft, Non Tender, Non Distended and Normal Bowel Sounds; No Organomegaly
Rectal:no bleeding
Musculoskeletal: No Clubbing, No Cyanosis and No Edema
Skin: No Rash
Neuro: AO x 3 and Nonfocal/grossly intact
Psych: Calm
# A-fib with RVR
- Multiple cardioversion in the past
She spontaneously cardioverted with the addition of diltiazem. Now in NSR. Repeat ECG showed sinus rhythm
Continue with diltiazem, metoprolol and Eliquis. Discussed with cardiology, okay to go home after echo
# Hypothyroidism
- Levothyroxine continued
# CKD stage IV
- Creatinine 1.8
No flank pain or hematuria
# Essential hypertension
- Norvasc stopped
on Cardizem and BB
# Hyperlipidemia
- Statin continued
# Obesity
BMI 44
# History of CHF
does not appear overloaded
- Not in acute exacerbation
- Farxiga, torsemide continued
- Strict [place], daily weight
# DVT prophylaxis
- Eliquis
# CODE STATUS
-Full code
Total discharge time spent to see the patient, examine the patient, review lab results and data, discuss discharge plan with patient, nursing staff around 65 minutes
Anticipated Discharge: Today
Subjective/Interval History
-
Date of Service: June 10, 2025
No sob
No chest pain
No palpitation
No headache
Objective Data
-
Labs:
Laboratory Results
06/10/25
04:30
Sodium 142
Potassium 4.0
Chloride 108 H
Carbon Dioxide 28
BUN 28 H
Creatinine 1.8 H
Glucose 93
Calcium 9.1
Vital Signs:
Vital Signs
Temp Pulse Resp BP Pulse Ox
98.8 F 65 16 143/67 93
06/10/25 07:16 06/10/25 07:17 06/10/25 07:16 06/10/25 07:17 06/10/25 07:16
I&O
06/09/25 06/10/25 06/11/25
06:59 06:59 06:59
Intake Total 240 / 240
Balance 240 / 240
--- NOTE | 2025-06-10 09:31 | W.PN.CD ---
Today's Communication / Plan
-
Continue Metop, Dilitazem, and Eliquis
Repeat ECG in sinus rhythm
Ok for discharge
Impression / Plan
-
AFIB, recurrent, persistent:
-She cardioverted with the addition of diltiazem. Now in NSR. Repeat ECG.
-Continue rate control with Metoprolol 75mg BID and Diltiazem 120mg daily
-continue Eliquis for OAC- she reports compliance
HTN:
-continue BB and CCB as above and monitor
HFpEF: chronic
-does not appear overloaded
-would continue usual diuretic regimen
CKD IV:
-follow creatinine
-Dr. Carreno is ekg tech
-hx nephrectomy (right partial and left total)
Subjective: No CV complaints. She denies lightheadedness, fatigue, presyncope and syncope.
Physical Exam
Vital Signs/Labs
Vital Signs
Temp Pulse Resp BP Pulse Ox
98.8 F 65 16 143/67 93
06/10/25 07:16 06/10/25 07:17 06/10/25 07:16 06/10/25 07:17 06/10/25 07:16
06/09/25 06/10/25 06/11/25
06:59 06:59 06:59
Actual Weight 251 lb 5.231 oz
06/09/25 13:03
06/10/25 04:30
APTT 30.6 Sec (23.4-35.0) 06/09/25 13:03
Triglycerides 121 mg/dl (10-149) 06/10/25 04:30
LDL Cholesterol, Calc 55 mg/dl 06/10/25 04:30
VLDL Cholesterol, Calc 24 mg/dl (0-30) 06/10/25 04:30
HDL Cholesterol 34 mg/dl 06/10/25 04:30
Physical Exam
Constitutional: No acute distress and Comfortable
Cardiovascular: Rhythm & rate is regular, Pedal edema present, S1S2 is normal and Murmur/rub/gallop absent
Respiratory: Respiratory effort normal and Lungs clear to auscul.
Neuro/Psych: AO x 3
Data Reviewed
-
Date of Service: June 10, 2025
Medical Decision Making: Reviewed Test Results, Independent Historian Assessment, Test Interpretation and Review of Case with other Provider
EKG: Tracing Personally Visualized and interpreted
Echo: Report Reviewed by me
Labs: Labs Reviewed by me
--- NOTE | 2025-06-10 09:47 | PTCARENOTE ---
The patient is aao, vital signs are stable. NSR is noted on the monitor. She converted earlier in the am. She has no complaints except for the SCDs hurting her legs.
[2025-06-10 10:33] VITALS: BP 159/92
--- NOTE | 2025-06-10 10:48 | PTCARENOTE ---
While the patient attempted to rise oob bed she became dizzy. I had her sit on the side of the bed until it subsided. Her vital signs were stable. I explained to her the side effects of Diltiazem. I asked her to rise slowly upon sitting up or
standing. In addition, I asked her to ring the call pelaez for assistance before getting oob to the chair or the bathroom. Her dizziness did subside shortly after sitting up for a bit.
[2025-06-10 11:25] VITALS: BP 158/70
--- NOTE | 2025-06-10 11:32 | CM ---
Chart reviewed. Patient is independent of ADLS, lives with her in a [address], [address] [facility], ambulates with a SPC and also a rollator for long distances.. Plan is for the patient to return home. CM to follow
[2025-06-10] MEDS: VITAMIN B-6 100 MG PO (12:08)
[2025-06-10] MEDS: TYLENOL 650 MG PO (13:29)
--- NOTE | 2025-06-10 13:31 | PTCARENOTE ---
Patient c/o BL hip pain and rated it an 8/10 on scale. Tylenol given as ordered.
[2025-06-10 15:59] VITALS: BP 153/75
--- NOTE | 2025-06-10 16:41 | W.DCSUMMARY ---
Discharge Summary
Discharge Data
Date of Admission: 06/09/25
Date of Discharge: 06/10/25
-
Pending Results: No
Hospital Course
84-year-old female presented with recurrence of atrial fibrillation. ECG 06/09/2025: Atrial flutter with 2:1 AV conduction, HR 122 bpm. She was started on a diltiazem drip and her rates became better controlled. Patient did not have significant
symptoms. She was evaluated by fuel system maintenance supervisor. She was maintained on metoprolol 75 mg twice daily. Oral Cardizem was added. Echocardiogram showed normal biventricular size and function, stage III diastolic dysfunction, severely dilated left
atrium, mild to moderate mitral regurgitation, mild aortic stenosis with mean 11 mmHg, mild to moderate tricuspid regurgitation with estimated PASP 50 mmHg. Patient converted spontaneously to sinus rhythm. Rate remained well-controlled. She was
able to ambulate without distress. Fishing Vessel Mate recommended outpatient follow-up. Patient remained hemodynamically stable and was discharged home in a stable condition.
Discharge Plan
-
Patient Disposition: Home (Routine Discharge)
Discharge Diagnosis/Procedures: Paroxysmal atrial fibrillation, continue metoprolol, diltiazem and Eliquis
Diet: As tolerated
Referrals:
Kimberly Manzo MD [Family Provider, [facility]]
Prescriptions:
New
diltiazem HCl 120 mg Capsule,Extended Release 24hr
120 mg PO DAILY Qty: 30 0RF
Continued
atorvastatin 10 MG tablet
10 mg PO Q48H@1999
levothyroxine 50 MCG tablet
50 mcg PO MOTUWETHFRSA
folic acid 0.4 MG tablet
0.4 mg PO NOON
Eliquis 2.5 mg Tablet
2.5 mg PO BID
PreserVision AREDS-2 250-90-40-1 mg Capsule
1 cap PO BID
cyanocobalamin (vitamin B-12) [Vitamin B-12] 500 mcg Tablet
500 mcg PO NOON
ascorbic acid (vitamin C) [Vitamin C] 500 mg Tablet
500 mg PO NOON
metoprolol succinate 50 mg tablet extended release 24 hr
75 mg PO BID
sodium bicarbonate 650 mg Tablet
650 mg PO BID
torsemide 10 mg Tablet
10 mg PO DAILY
acetaminophen [Tylenol Extra Strength] 500 mg Tablet
500 mg PO TIDPRN PRN (Reason: mild pain)
levothyroxine 50 mcg Tablet
100 mcg PO PURCELL
pyridoxine (vitamin B6) 100 mg Tablet
100 mg PO NOON
cholecalciferol (vitamin D3) 25 mcg (1,000 unit) Tablet
25 mcg PO NOON
dapagliflozin propanediol [Farxiga] 10 mg Tablet
10 mg PO DAILY
Discontinued
amlodipine 5 mg Tablet
5 mg PO DAILY
Discharge Orders:
Discharge Patient (As Directed); Ordered 06/10/25
Ordered By: Remberto Ibarra
Care Plan Goals
Care Plan Goals:
Problem: Readiness for enhanced knowledge related to diagnosis and treatment plan
Goal: Understand your diagnosis and treatment plan needs, including medications if applicable.
Instructions: Know your diagnosis, underlying causes and treatment plan options, including medications if applicable. Consult with your health care team to learn about your diagnosis and treatment plan, including medications if applicable.
Discharge Date and Time
Print Language: Irish
== END 2025-06-10 17:06 | disposition home or self-care (01) | DRG 309 ==
LOC: IVU 15:42
PROVIDERS: Registered Nurse; Student in an Organized Health Care Education/Training Program; ADMITTING PHYSICIAN Internal Medicine; ATTENDING PHYSICIAN Internal Medicine; CONSULT PHYSICIAN Student in an Organized Health Care Education/Training Program; EMERGENCY PHYSICIAN Emergency Medicine; FAMILY PHYSICIAN Family Medicine
DX: I48.19 Other persistent atrial fibrillation (principal); I13.0 Hypertensive heart and chronic kidney disease with heart failure and stage 1 through stage 4 chronic kidney disease, or unspecified chronic kidney disease; I50.32 Chronic diastolic (congestive) heart failure; N18.4 Chronic kidney disease, stage 4 (severe); I48.92 Unspecified atrial flutter; I45.89 Other specified conduction disorders; E03.9 Hypothyroidism, unspecified; E66.09 Other obesity due to excess calories; E78.00 Pure hypercholesterolemia, unspecified; G47.33 Obstructive sleep apnea (adult) (pediatric); I08.1 Rheumatic disorders of both mitral and tricuspid valves; I25.10 Atherosclerotic heart disease of native coronary artery without angina pectoris; R09.02 Hypoxemia; M19.90 Unspecified osteoarthritis, unspecified site; Z68.43 Body mass index [BMI] 50.0-59.9, adult; Z79.01 Long term (current) use of anticoagulants; Z79.899 Other long term (current) drug therapy; Z85.528 Personal history of other malignant neoplasm of kidney; Z90.5 Acquired absence of kidney
CPT/HCPCS: 80048; 80053; 80061; 85025; 85730; 93005; 93306; 96374; 96376; 99285

== ENCOUNTER 2025-09-28 03:41 | Emergency (ER) | payer OTHER, SELFPAY ==
[2025-09-28 03:43] VITALS: BP 170/118
[2025-09-28 03:51] VITALS: BMI 46.5
[2025-09-28 04:00] VITALS: BP 169/94
--- NOTE | 2025-09-28 04:11 | ED.GENMED ---
History of Present Illness
<Brielle Rossi MD, Resident - Last Filed: 09/28/25 07:17>
General
Chief Complaint: Cardiac Symptoms
Source: patient
Time Seen by Provider: 09/28/25 03:57
History of Present Illness
History of Present Illness:
84-year-old female with significant past medical history of paroxysmal atrial fibrillation on eliquis, HFpEF (echo 06/10/2555 to 60% ejection fraction and stage III diastolic dysfunction), CKD stage 4 presents to the ER for elevated heart rate.
Around 10:40 PM, she got an alert from her Apple Watch that she was in A-fib with a heart rate of 132. Around 11:00, she took 50 mg extra of metoprolol as during a prior similar event this these were their her instructions. This did not help her.
At its highest, her rate was 145 but the average was around 130. She called the cardiology hotline after waiting a few hours to see if it would resolve and they recommended for her to come into the ER for further evaluation. She denies any chest
pain, shortness of breath, heart palpitations symptoms, fevers, chills. Her dry weight is 250 pounds roughly. She has not had any increase in weight recently. She has not missed any doses of Eliquis recently.
Regional Project Manager is Dr. Ursula GALAN.
Past History
<Brielle Rossi MD, Resident - Last Filed: 09/28/25 07:17>
Past History
ED Past Medical History: Cancer, CHF (HFpEF), HTN, Hypercholesterolemia, Renal failure, Hypothyroidism and Other (Kidney cancer, macular degeneration)
ED Past Surgical History: Urological and Other (Thyroidectomy)
Social History
Tobacco: Non-smoker
Alcohol: None
Drug: None
Personal:
Living: with family
Family History
Family History: Other
Review of Systems
<Brielle Rossi MD, Resident - Last Filed: 09/28/25 07:17>
Review of Systems
Allergies reviewed?: Yes
Constitutional: Reports no symptoms
EENT: Reports no symptoms
Respiratory: Reports no symptoms
Cardiac: Reports no symptoms
ABD/GI: Reports no symptoms
: Reports no symptoms
Musculoskeletal: Reports no symptoms
Skin: Reports no symptoms
Neurological: Reports no symptoms
Endocrine: Reports no symptoms
Hematologic/Lymphatic: Reports no symptoms
Psychiatric: Reports no symptoms
Phy Exam
<Brielle Rossi MD, Resident - Last Filed: 09/28/25 07:17>
Physical Exam
Physical Exam:
General: Well-appearing
Head: Atraumatic
Cardiac: Regular S1, S2, no murmurs
Respiratory: Clear breath sounds bilaterally, no wheezes or rails
Abdomen, soft, nontender, nondistended, normal bowel sounds
Extremities: Significant peripheral pitting edema
Psych: Calm
General Physical Exam
General Presentation: well appearing
General age: appears stated age
General Skin: warm and dry
General Habitus: obese
General Mental: alert
General Hydration: appears well hydrated
Course
<Brielle Rossi MD, Resident - Last Filed: 09/28/25 07:17>
Orders/Labs/Results
Orders:
Orders
09/28/25 03:47
EKG [Electrocardiogram (*1)] Urgent
Reason for Study: Atrial Fibrillation
EKG- Treatment ONCE
09/28/25 04:02
Basic Metabolic Panel Urgent
Comment: NO K
Complete Blood Count/With Diff Urgent
TSH Reflex To Free T4 Urgent
09/28/25 04:03
Diltiazem 125 mg/125 ml Nss [Cardizem] 125 mg in 125 ml IV NOW
Initial dose in mg/hr, then titrate:: 10
Titrate to keep:: Heart rate 80-100 bpm
Titrate by mg/hr:: 5 mg/hr
Frequency of titrations (minutes):: 15
Maximum dose in mg/hr:: 15
Diltiazem HCl [Cardizem] 20 mg IV NOW STA
09/28/25 04:28
Electrocardiogram (*1) Urgent
Reason for Study: Abnormal EKG
EKG- Treatment ONCE
Abnormal Lab Results
09/28/25
04:02
MCHC 32.8 L g/dL
(33.0-37.0)
BUN 27 H mg/dl
(7-17)
Creatinine 1.6 H mg/dL
(0.6-1.0)
Glucose 110 H mg/dl
(70-99)
09/28/25 04:02
09/28/25 04:02
Vital Signs
Initial and Last Documented VS:
Initial Vital Signs
Temp Pulse Resp BP Pulse Ox
98.1 F 137 20 170/118 96
09/28/25 03:43 09/28/25 03:43 09/28/25 03:43 09/28/25 03:43 09/28/25 03:43
Last Documented Vital Signs
Temp Pulse Resp BP Pulse Ox
98.1 F 67 25 144/76 84
09/28/25 03:43 09/28/25 05:36 09/28/25 05:36 09/28/25 05:38 09/28/25 05:37
<Jenni Noriega, DO - Last Filed: 09/28/25 06:24>
Orders/Labs/Results
Orders:
Orders
09/28/25 03:47
EKG [Electrocardiogram (*1)] Urgent
Reason for Study: Atrial Fibrillation
EKG- Treatment ONCE
09/28/25 04:02
Basic Metabolic Panel Urgent
Comment: NO K
Complete Blood Count/With Diff Urgent
TSH Reflex To Free T4 Urgent
09/28/25 04:03
Diltiazem 125 mg/125 ml Nss [Cardizem] 125 mg in 125 ml IV NOW
Initial dose in mg/hr, then titrate:: 10
Titrate to keep:: Heart rate 80-100 bpm
Titrate by mg/hr:: 5 mg/hr
Frequency of titrations (minutes):: 15
Maximum dose in mg/hr:: 15
Diltiazem HCl [Cardizem] 20 mg IV NOW STA
09/28/25 04:28
Electrocardiogram (*1) Urgent
Reason for Study: Abnormal EKG
EKG- Treatment ONCE
Abnormal Lab Results
09/28/25
04:02
MCHC 32.8 L g/dL
(33.0-37.0)
BUN 27 H mg/dl
(7-17)
Creatinine 1.6 H mg/dL
(0.6-1.0)
Glucose 110 H mg/dl
(70-99)
09/28/25 04:02
09/28/25 04:02
Vital Signs
Initial and Last Documented VS:
Initial Vital Signs
Temp Pulse Resp BP Pulse Ox
98.1 F 137 20 170/118 96
09/28/25 03:43 09/28/25 03:43 09/28/25 03:43 09/28/25 03:43 09/28/25 03:43
Last Documented Vital Signs
Temp Pulse Resp BP Pulse Ox
98.1 F 67 25 144/76 84
09/28/25 03:43 09/28/25 05:36 09/28/25 05:36 09/28/25 05:38 09/28/25 05:37
<Brielle Rossi MD, Resident - Last Filed: 09/28/25 07:17>
MDM/Problems Addressed
Differential Diagnosis Includes:
A-fib with RVR, heart failure exacerbation, ND, anxiety,
MDM/Problems Addressed:
EKG revealed A-fib with RVR. Cardizem drip was ordered however before administration of medications, patient went back and what appears to be sinus rhythm on telemetry. Heart rate is now in the 70s. Will check CBC, CMP and TSH in the meantime and
continue to monitor telemetry for change in heart rate. If heart rate is consistently well-controlled, will discharge with recommendations to follow-up with cardiology for further evaluation.
Patient is 10lbs above baseline dry weight. She denies any SOB, no crackles are heard in bilateral lung bases. She stated her legs are not more edematous than baseline. HFpEF not in exacerbation.
Patients labs revealed 1.6 at baseline, TSH 1.74 within normal limits. She remained in sinus for the next hour on telemetry. Will discharge with instructions to follow up with Regional Project Manager for further medication reconcilliation.
Chronic conditions affecting care: Cardiomyopathy, Arrhythmia and Kidney disease
<Brielle Rossi MD, Resident - Last Filed: 09/28/25 07:17>
*Pulse Oximetry
SaO2: 95
Oxygen Mode of Delivery: Room air
Patient hypoxic: no
*Ceramic Research Engineer Interpretation
Rate: normal
Interpretation: normal
Rhythm: sinus
*Critical Care Note
Total Time (30-74mins, 75-104mins- exclusive of procedures): Not Applicable
Data Reviewed
Review of Other/Old Records Reveals: Labs (Cr 1.8 06/10/25) and Radiology Studies (Echo 06/10/2025 EF 55 to 60%, stage III diastolic dysfunction)
Source: patient and records
ED Attending Note
<Brielle Rossi MD, Resident - Last Filed: 09/28/25 07:17>
-
Portions of this chart may have been created with voice recognition software.� Occasional wrong word or��sound alike� substitutions may have occurred due to the inherent limitations of voice recognition software.
<Jenni Noriega, DO - Last Filed: 09/28/25 06:24>
ED Attending Note
Patient seen and examined by attending physician: Yes
I performed a history and physical exam of patient and discussed management with resident, I reviewed resident's note and agree with documented findings and plan of care.: Yes
ED Attending Note:
84-year-old woman with history of PAF, maintained on Eliquis. Prior history of A-fib ablation. Has required cardioversion in the past as well as brief hospitalization in May due to recurrent A-fib 10 days after cardioversion.
She follows with Dr. Vergara.
She presents with recurrent A-fib noting her watch showed heart rate of 130. As instructed by cardiology she took an extra dose of metoprolol around 11 PM when symptoms began. She has had no chest pain no shortness of breath, no nausea or
vomiting. Palpitations and rapid pulse rate persisted thus she presented to the ED.
Upon arrival EKG shows atrial flutter with rapid ventricular response of 130. She remains hemodynamically stable.
Her plan was to initiate IV Cardizem bolus and drip but patient has converted to normal sinus rhythm spontaneously prior to initiation of Cardizem.
She remains asymptomatic.
84-year-old obese woman appears her stated age, bright alert, pleasant, appears in no acute distress. Accompanied by her .
Heart is regular rate and rhythm.
Lungs are clear to auscultation. Respirations are easy nonlabored.
Will continue traffic monitor specialist assess for recurrent atrial fibrillation and if she remains in normal sinus rhythm will discharge to home with plan for follow-up with surveillance sensor officer, Dr. Vergara.
Discharge Plan
Departure
Patient Disposition: Home (Routine Discharge)
Date of Disposition: 09/28/25
Time of Disposition: 05:31
Patient with high blood pressure during this ER visit?: Yes
Discharge Problem:
Atrial fibrillation with RVR
Prescriptions:
No Action
atorvastatin 10 MG tablet
10 mg PO Q48H@1999
levothyroxine 50 MCG tablet
50 mcg PO MOTUWETHFRSA
folic acid 0.4 MG tablet
0.4 mg PO NOON
Eliquis 2.5 mg Tablet
2.5 mg PO BID
PreserVision AREDS-2 250-90-40-1 mg Capsule
1 cap PO BID
cyanocobalamin (vitamin B-12) [Vitamin B-12] 500 mcg Tablet
500 mcg PO NOON
ascorbic acid (vitamin C) [Vitamin C] 500 mg Tablet
500 mg PO NOON
metoprolol succinate 50 mg tablet extended release 24 hr
75 mg PO BID
sodium bicarbonate 650 mg Tablet
650 mg PO BID
torsemide 10 mg Tablet
10 mg PO DAILY
acetaminophen [Tylenol Extra Strength] 500 mg Tablet
500 mg PO TIDPRN PRN (Reason: mild pain)
levothyroxine 50 mcg Tablet
100 mcg PO PURCELL
pyridoxine (vitamin B6) 100 mg Tablet
100 mg PO NOON
cholecalciferol (vitamin D3) 25 mcg (1,000 unit) Tablet
25 mcg PO NOON
dapagliflozin propanediol [Farxiga] 10 mg Tablet
10 mg PO DAILY
diltiazem HCl 120 mg Capsule,Extended Release 24hr
120 mg PO DAILY Qty: 30 0RF
Referrals:
Kimberly Manzo MD [Family Provider, Family Practice]
Perry Vergara MD [Active, Cardiology] - Call in 1-3 days for appt
Activity Restrictions/Additional Instructions:
Please follow up with surveillance sensor officer for further evaluation.
Interventions
Interventions:
*Risk Screen - Suicide Last Done: 09/28/25 03:43
*General Assessment Last Done: 09/28/25 03:43
*Neglect/Abuse Screening Last Done: 09/28/25 03:54
*ED- Fall Risk Assessment Last Done: 09/28/25 03:54
*ED COVID-19 Vaccine History Last Done: 09/28/25 03:54
*ED Influenza Vaccine History Last Done: 09/28/25 03:54
*Nursing Disposition Last Done: 09/28/25 05:50
ED- Pulmonary Assessment Last Done: 09/28/25 04:02
ED- Cardiac Assessment Last Done: 09/28/25 04:02
Discharge Date and Time
Discharge Date/Time: 09/28/25 05:50
Print Language: Danish
[2025-09-28 04:37] LABS: Blood Urea Nitrogen 27 mg/dl (7-17); Calcium 9.1 mg/dl (8.4-10.2); Carbon Dioxide 28 mmol/L (22-30); Chloride 106 mmol/L (98-107); Estimated Creatinine Clearance 33 ml/min; Glucose 110 mg/dl (70-99); Sodium 140 mmol/L (135-145); eGFR 31.61
[2025-09-28 04:39] LABS: Hematocrit 40.0 % (37.0-47.0); Hemoglobin 13.1 g/dL (12.0-16.0); Mean Corp Hgb Conc. 32.8 g/dL (33.0-37.0); Mean Corpuscular Volume 92.8 fL (81.0-99.0); Nucleated Red Blood Cells % 0 %; Platelet Count 209 10^3/uL (130-400); Red Cell Dist. Width 13.1 % (11.5-14.5)
[2025-09-28 05:00] VITALS: BP 179/95
[2025-09-28 05:38] VITALS: BP 144/76
== END 2025-09-28 05:50 | disposition home or self-care (01) ==
LOC: EMR 03:41
PROVIDERS: EMERGENCY PHYSICIAN Emergency Medicine; FAMILY PHYSICIAN Family Medicine
DX: I48.0 Paroxysmal atrial fibrillation (principal); I42.9 Cardiomyopathy, unspecified; I13.0 Hypertensive heart and chronic kidney disease with heart failure and stage 1 through stage 4 chronic kidney disease, or unspecified chronic kidney disease; I50.32 Chronic diastolic (congestive) heart failure; N18.4 Chronic kidney disease, stage 4 (severe); E78.00 Pure hypercholesterolemia, unspecified; E89.0 Postprocedural hypothyroidism; E66.9 Obesity, unspecified; Z68.42 Body mass index [BMI] 45.0-49.9, adult; H35.30 Unspecified macular degeneration; Z79.01 Long term (current) use of anticoagulants; Z85.528 Personal history of other malignant neoplasm of kidney
CPT/HCPCS: 99284; 80048; 84443; 85025; 93005